=== PATIENT | male | born 1990 | race American Indian/Alaskan Native ===

== ENCOUNTER 2018-12-15 07:47 | Emergency (ER) | payer OTHER ==
[2018-12-15 07:56] VITALS: BP 121/76
--- NOTE | 2018-12-15 08:36 | Emergency Department Report ---
ED Extremity Problem HPI - General Chief complaint: Extremity Injury, Lower Stated complaint: FEET PAIN Time Seen by Provider: 12/15/18 08:26 Source: patient Mode of arrival: Ambulatory Limitations: No Limitations - History of Present Illness Initial comments: Patient is a 28-year-old -[place] male who was previously healthy is complaining of bilateral foot pain. Patient states that the pain is a burning sensation is 6 out of 10 in severity. This is mostly in the dorsum of foot. He denies any direct trauma. Patient states that he's tried [id number] ibuprofen and Tylenol without relief. Patient denies any fevers chills nausea vomiting or diarrhea at this time. MD Complaint: extremity pain - Related Data Previous Rx's Medication Instructions Recorded Last Taken Type Ibuprofen [Motrin] 800 mg PO Q8HR PRN #20 tablet 12/15/18 Unknown Rx traMADol [Ultram] 50 mg PO Q6HR PRN #10 tablet 12/15/18 Unknown Rx Allergies Allergy/AdvReac Type Severity Reaction Status Date / Time No Known Allergies Allergy Unverified 12/15/18 07:48 ED Review of Systems ROS: Stated complaint: FEET PAIN Other details as noted in HPI Comment: All other systems reviewed and negative ED Past Medical Hx - Social History Smoking Status: Current Every Day Smoker Substance Use Type: None - Medications Home Medications: Home Medications Medication Instructions Recorded Confirmed Last Taken Type Ibuprofen [Motrin] 800 mg PO Q8HR PRN #20 tablet 12/15/18 Unknown Rx traMADol [Ultram] 50 mg PO Q6HR PRN #10 tablet 12/15/18 Unknown Rx ED Physical Exam - General Limitations: No Limitations General appearance: alert, in no apparent distress - Head Head exam: Present: atraumatic, normocephalic - Eye Eye exam: Present: normal appearance - ENT ENT exam: Present: mucous membranes moist - Neck Neck exam: Present: normal inspection - Respiratory Respiratory exam: Present: normal lung sounds bilaterally. Absent: respiratory distress - Cardiovascular Cardiovascular Exam: Present: regular rate, normal rhythm. Absent: systolic murmur, diastolic murmur, rubs, gallop - GI/Abdominal GI/Abdominal exam: Present: soft, normal bowel sounds - Rectal Rectal exam: Present: deferred - Extremities Exam Extremities exam: Present: normal inspection, full ROM. Absent: tenderness, pedal edema, joint swelling - Back Exam Back exam: Present: normal inspection - Neurological Exam Neurological exam: Present: alert, oriented X3 - Psychiatric Psychiatric exam: Present: normal affect, normal mood - Skin Skin exam: Present: warm, dry, intact, normal color. Absent: rash ED Course Vital Signs 12/15/18 07:52 Temperature 97.8 F Pulse Rate 74 Respiratory 16 Rate Blood Pressure 121/76 O2 Sat by Pulse 99 Oximetry ED Medical Decision Making - Medical Decision Making Patient suffering from some type of neuropathy. Patient referred to podiatry Critical care attestation.: If time is entered above; I have spent that time in minutes in the direct care of this critically ill patient, excluding procedure time. ED Disposition Clinical Impression: Neuropathic pain Disposition: DC-01 TO HOME OR SELFCARE Is pt being admited?: No Does the pt Need Aspirin: No Condition: Stable Referrals: ADINA CHAKRABORTY MD [Primary Care Provider] - 3-5 Days ESTRELLA PACHECO DPM [Staff Physician] - 3-5 Days Time of Disposition: 08:37
== END 2018-12-15 08:58 | disposition home or self-care (01) ==
LOC: ED 07:47
DX: M79.2 Neuralgia and neuritis, unspecified (principal); F17.200 Nicotine dependence, unspecified, uncomplicated
CPT/HCPCS: 82962; 99282

== ENCOUNTER 2019-01-27 15:11 | Emergency (ER) | payer OTHER ==
[2019-01-27 15:33] VITALS: BP 124/76
--- NOTE | 2019-01-27 15:35 | Emergency Department Report ---
Chief Complaint: Skin Rash Stated Complaint: SKIN BREAKOUT Time Seen by Provider: 01/27/19 15:30 - HPI History of Present Illness: This is a 28 y.o. male that presents to the ER with rash to anterior trunk and BLE x 1 week. 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 Patient think he caught something from work. He reports rash is spreading and itching. Patient states rash started on BLE and spread to torso. - Exam Vital Signs: Vital Signs 01/27/19 15:30 Temperature 97.8 F Pulse Rate 111 H Respiratory 16 Rate Blood Pressure 124/76 O2 Sat by Pulse 98 Oximetry MSE screening note: Focused history and physical exam performed. Due to findings the following was ordered: ED Disposition for MSE Condition: Stable
--- NOTE | 2019-01-27 16:28 | Emergency Department Report ---
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 She areas to his body associated with some hyperpigmented rash. In a tunneling type fashion. Also, some pustules to the a few of the hair shafts in the groin area with a RespiGam to spread as well. Rash is primarily in the creases and a few areas on the torso. He is unsure of what the cause was to start the process ED Review of Systems ROS: Stated complaint: SKIN BREAKOUT Other details as noted in HPI Constitutional: denies: chills, fever Eyes: denies: eye pain, eye discharge, vision change ENT: denies: ear pain, throat pain Respiratory: denies: cough, shortness of breath, wheezing Cardiovascular: denies: chest pain, palpitations Endocrine: no symptoms reported Gastrointestinal: denies: abdominal pain, nausea, diarrhea Genitourinary: denies: urgency, dysuria Musculoskeletal: denies: back pain, joint swelling, arthralgia Skin: rash. denies: lesions Neurological: denies: headache, weakness, paresthesias Psychiatric: denies: anxiety, depression Hematological/Lymphatic: denies: easy bleeding, easy bruising ED Past Medical Hx - Past Medical History Previous Medical History?: No - Surgical History Past Surgical History?: No - Social History Smoking Status: Current Every Day Smoker Substance Use Type: Alcohol - Medications Home Medications: Home Medications Medication Instructions Recorded Confirmed Last Taken Type Ibuprofen [Motrin] 800 mg PO Q8HR PRN #20 tablet 12/15/18 Unknown Rx traMADol [Ultram] 50 mg PO Q6HR PRN #10 tablet 12/15/18 Unknown Rx Mometasone Furoate [Elocon] 45 gm TP BID #1 cream..g. 01/27/19 Unknown Rx Mupirocin [Bactroban 2%] 15 applic TP TID #15 gm 01/27/19 Unknown Rx Permethrin 5% [Acticin 5% CREAM] 1 gm TP BID #1 tube 01/27/19 Unknown Rx Sulfamethoxazole/Trimethoprim 1 each PO BID #20 tablet 01/27/19 Unknown Rx [Bactrim Ds] hydrOXYzine HCL [Atarax] 25 mg PO Q6HR PRN #20 tablet 01/27/19 Unknown Rx Rash Exam - Exam General: Vital signs noted. No distress. Alert and acting appropriately. HEENT: No Periorbital Edema, No Conjuctival Injection, No Chemosis, No Perioral Edema, No Tongue Edema, No Uvular Edema, No Compromised Airway, No Drooling Lungs: Yes Good Air Exchange (Normal Breath Sounds), No Wheezes, No Ronchi, No Stridor, No Cough, No Labored Respirations, No Retractions, No Use of Accessory Muscles, No Other Abnormal Lung Sounds Heart: Yes Regular, No Murmur Skin: Yes Other (few pustules to the [id number] with hyperpigmented macular scaling to some areas on the lower abdomen. There is a serpiginous type of a rash to the to the inguinal crease areas between the webbing of the fingers to the abdomen.) Other: Positive: Abdomen Normal, Neurologic Normal, Musculoskeletal Normal ED Course Vital Signs 01/27/19 15:30 Temperature 97.8 F Pulse Rate 111 H Respiratory 16 Rate Blood Pressure 124/76 O2 Sat by Pulse 98 Oximetry ED Medical Decision Making - Differential Diagnosis contact dermatitis, scabies, bacterial rash, Critical care attestation.: If time is entered above; I have spent that time in minutes in the direct care of this critically ill patient, excluding procedure time. ED Disposition Clinical Impression: Rash and nonspecific skin eruption Disposition: DC-01 TO HOME OR SELFCARE Is pt being admited?: No Does the pt Need Aspirin: No Condition: Stable Instructions: Acute Rash (ED) Referrals: [facility] [Provider Group] - 3-5 Days Forms: Work/School Release Form(ED)
== END 2019-01-27 16:49 | disposition home or self-care (01) ==
LOC: ED 15:11
DX: R21 Rash and other nonspecific skin eruption (principal); L29.9 Pruritus, unspecified; R20.2 Paresthesia of skin; F17.200 Nicotine dependence, unspecified, uncomplicated
CPT/HCPCS: 99282

== ENCOUNTER 2019-06-02 14:34 | Emergency (ER) | payer SELFPAY ==
--- NOTE | 2019-06-02 14:51 | Event Note ---
ED Screening Note ED Screening Note: abscess on buttocks hx of p. cyst This initial assessment/diagnostic orders/clinical plan/treatment(s) is/are subject to change based on patients health status, clinical progression and re- assessment by fellow clinical providers in the ED. Further treatment and workup at subsequent clinical providers discretion. Patient/guardian urged not to elope from the ED as their condition may be serious if not clinically assessed and managed. Initial orders include: ACC
[2019-06-02 15:28] LABS: Hematocrit 40.9 % (35.5-45.6); Hemoglobin 13.6 gm/dl (11.8-15.2); Mean Corpuscular HGB Conc 33 % (32-34); Mean Corpuscular Volume 88 fl (84-94); Platelet Count 183 K/mm3 (140-440); Red Blood Count 4.64 M/mm3 (3.65-5.03); Red Cell Distribution Width 14.2 % (13.2-15.2)
[2019-06-02 15:42] LABS: BUN/Creatinine Ratio 10; Blood Urea Nitrogen 9 mg/dL (9-20); Calcium 8.9 mg/dL (8.4-10.2); Hemolysis Index 38
[2019-06-02] MEDS ORDERED: IBUPROFEN PO ONE (15:54)
[2019-06-02] MEDS ORDERED: IBUPROFEN ONE (19:49)
[2019-06-02] MEDS ORDERED: XYLOCAINE 1% MPF 5 mL INFILTRATI ONE (21:02)
[2019-06-02] MEDS ORDERED: ROCEPHIN IM STA (21:02)
--- NOTE | 2019-06-02 21:07 | Emergency Department Report ---
Abscess Boil HPI - HPI Chief Complaint: Skin/Abscess/Foreign Body Stated Complaint: ABCESS ON BUTTOCK Time Seen by Provider: 06/02/19 14:46 Duration: 5 Days Location: Other (right gluteal region) Severity: Mild History: Yes Pain, No Fever, No Purulent Drainage, No Numbness, No Foreign Body, No Previous History, No Insect Bite HPI: 28-year-old -[place] male with past medical history of recurrent abscesses, presents emergency department complaining of painful abscess development to his right Botox which she seeks antimicrobials therapy and evaluation. Reports no drainage. No fever, chills, sweats, no pain to the regional his testicular region. No rectal discomfort or involvement. Home Medications: Previous Rx's Medication Instructions Recorded Last Taken Type Ibuprofen [Motrin] 800 mg PO Q8HR PRN #20 tablet 12/15/18 Unknown Rx traMADol [Ultram] 50 mg PO Q6HR PRN #10 tablet 12/15/18 Unknown Rx Mometasone Furoate [Elocon] 45 gm TP BID #1 cream..g. 01/27/19 Unknown Rx Mupirocin [Bactroban 2%] 15 applic TP TID #15 gm 01/27/19 Unknown Rx Permethrin 5% [Acticin 5% CREAM] 1 gm TP BID #1 tube 01/27/19 Unknown Rx Sulfamethoxazole/Trimethoprim 1 each PO BID #20 tablet 01/27/19 Unknown Rx [Bactrim Ds] hydrOXYzine HCL [Atarax] 25 mg PO Q6HR PRN #20 tablet 01/27/19 Unknown Rx Chlorhexidine Gluconate [Hibiclens] 10 ml TP BID #240 liquid 06/02/19 Unknown Rx Ketorolac [Toradol] 10 mg PO Q6H PRN #15 tablet 06/02/19 Unknown Rx Sulfamethoxazole/Trimethoprim 2 each PO BID #40 tablet 06/02/19 Unknown Rx [Bactrim DS TAB] Allergies/Adverse Reactions: Allergies Allergy/AdvReac Type Severity Reaction Status Date / Time No Known Allergies Allergy Verified 06/02/19 14:37 ED Review of Systems ROS: Stated complaint: ABCESS ON BUTTOCK Other details as noted in HPI Constitutional: no symptoms reported ED Past Medical Hx - Past Medical History Previous Medical History?: No - Surgical History Additional Surgical History: trach ankle knee - Social History Smoking Status: Never Smoker Substance Use Type: None - Medications Home Medications: Home Medications Medication Instructions Recorded Confirmed Last Taken Type Ibuprofen [Motrin] 800 mg PO Q8HR PRN #20 tablet 12/15/18 Unknown Rx traMADol [Ultram] 50 mg PO Q6HR PRN #10 tablet 12/15/18 Unknown Rx Mometasone Furoate [Elocon] 45 gm TP BID #1 cream..g. 01/27/19 Unknown Rx Mupirocin [Bactroban 2%] 15 applic TP TID #15 gm 01/27/19 Unknown Rx Permethrin 5% [Acticin 5% CREAM] 1 gm TP BID #1 tube 01/27/19 Unknown Rx Sulfamethoxazole/Trimethoprim 1 each PO BID #20 tablet 01/27/19 Unknown Rx [Bactrim Ds] hydrOXYzine HCL [Atarax] 25 mg PO Q6HR PRN #20 tablet 01/27/19 Unknown Rx Chlorhexidine Gluconate [Hibiclens] 10 ml TP BID #240 liquid 06/02/19 Unknown Rx Ketorolac [Toradol] 10 mg PO Q6H PRN #15 tablet 06/02/19 Unknown Rx Sulfamethoxazole/Trimethoprim 2 each PO BID #40 tablet 06/02/19 Unknown Rx [Bactrim DS TAB] ED Abscess Boil Physical Exam - Exam General: Vital signs noted. No distress. Alert and acting appropriately. Size: 4 cm Exam: Yes Tenderness, Yes Fluctuance, No Surrounding Cellulites/Erythema, No Lymphangitis, No Crepitation, No Heart Murmur Exam: Abscess to the right gluteal region, not involving the rectal aspect. No lymphangitis. No no discharge noted palpation. I & D Note - I & D Note I & D Note: No incision and drainage performed. I discussed this process with the patient. He opted to try the treatment only said he would return if the antibodies did not decrease the infection/swelling. ED Course Vital Signs 06/02/19 15:01 Temperature 98.5 F Pulse Rate 95 H Respiratory 16 Rate Blood Pressure 108/69 O2 Sat by Pulse 100 Oximetry Critical care attestation.: If time is entered above; I have spent that time in minutes in the direct care of this critically ill patient, excluding procedure time. ED Medical Decision Making - Lab Data Result diagrams: 06/02/19 15:08 06/02/19 15:08 ED Disposition Clinical Impression: Abscess Disposition: DC-01 TO HOME OR SELFCARE Is pt being admited?: No Does the pt Need Aspirin: No Condition: Stable Instructions: Abscess (ED) Additional Instructions: Please return to emergency department should her abscesses not begin draining at the 2-3 days only for the general condition is worsening. Incision and drainage may be necessary at that time as well Prescriptions: Sulfamethoxazole/Trimethoprim [Bactrim DS TAB] 2 each PO BID #40 tablet Chlorhexidine Gluconate [Hibiclens] 10 ml TP BID #240 liquid Ketorolac [Toradol] 10 mg PO Q6H PRN #15 tablet PRN Reason: Pain Referrals: JOSIAH WOODARD MD [Emergency Provider] - 3-5 Days
[2019-06-02 21:27] VITALS: BP 106/72
== END 2019-06-02 21:28 | disposition home or self-care (01) ==
LOC: ED 14:34
DX: L02.31 Cutaneous abscess of buttock (principal)
CPT/HCPCS: 36415; 80048; 85027; 96372; 99283; J0696